=== PATIENT | female | born 1975 | race Caucasian/White ===

== ENCOUNTER 2024-09-30 12:33 | Emergency (ER) | payer OTHER, SELFPAY ==
[2024-09-30 12:46] VITALS: BP 163/86
[2024-09-30 13:20] LABS: % Basophils 0.6 % (0-2); % Eosinophils 1.1 % (0-6); % Immature Granulocytes 0.4 % (0-0.5); % Lymphocytes 11.8 % (20.5-51.1); % Monocytes 11.8 % (1.7-9.3); % Neutrophils 74.3 % (42.2-75.2); Absolute Eosinophils 0.1 10^3/uL (0-0.7); Absolute Lymphocytes 0.9 10^3/uL (1.2-3.4); Absolute Monocytes 0.9 10^3/uL (0.1-0.6); Absolute Neutrophils 5.4 10^3/uL (1.4-6.5); Hematocrit 41.8 % (37.0-47.0); Hemoglobin 13.7 g/dL (12.0-16.0); Mean Corp Hgb Conc. 32.8 g/dL (33.0-37.0); Mean Corpuscular Hgb 25.3 pg (27.0-31.0); Mean Corpuscular Volume 77.1 fL (81.0-99.0); Mean Platelet Volume 9.5 fL (7.4-10.4); Nucleated Red Blood Cells % 0 %; Platelet Count 261 10^3/uL (130-400); Red Blood Cell Count 5.42 10^6/uL (4.20-5.40); Red Cell Dist. Width 14.7 % (11.5-14.5); White Blood Cell Count 7.2 10^3/uL (4.8-10.8)
[2024-09-30 13:30] LABS: Lactic Acid 1.3 mmol/L (0.7-2.0)
[2024-09-30 13:32] LABS: ALT (SGPT) 17 U/L (0-35); AST (SGOT) 25 U/L (14-36); Albumin 4.3 g/dl (3.5-5.0); Alkaline Phosphatase 89 U/L (38-126); Blood Urea Nitrogen 10 mg/dl (7-17); Carbon Dioxide 24 mmol/L (22-30); Chloride 100 mmol/L (98-107); Glucose 84 mg/dl (70-99); Potassium 4.3 mmol/L (3.5-5.1); Sodium 135 mmol/L (135-145); Total Bilirubin 0.6 mg/dl (0.2-1.3); Total Protein 7.2 g/dl (6.3-8.2); eGFR > 60.00
--- NOTE | 2024-09-30 14:21 | ED.GENMED ---
History of Present Illness
General
Chief Complaint: Breathing Problem
Source: patient
Exam Limitations: none
Time Seen by Provider: 09/30/24 13:55
History of Present Illness
History of Present Illness:
See MDM
Past History
Past History
ED Past Medical History: Asthma and HTN
ED Past Surgical History: Gynecological
Social History
Tobacco: Former smoker
Drug: None
Personal:
Living: with family
Family History
Family History: Negative Early CAD
Phy Exam
Physical Exam
Physical Exam:
See MDM
Scores
Heart Failure Risk
Heart Failure Risk Score: Not Applicable
Course
Orders/Labs/Results
Orders:
Orders
09/30/24 12:34
EKG [Electrocardiogram (*1)] Urgent
Reason for Study: Shortness of Breath
EKG- Treatment ONCE
09/30/24 12:49
Chest [CR Chest - 2 Views ] Urgent
Comment:
Reason For Exam: SOB
09/30/24 12:58
Complete Blood Count/With Diff Urgent
Comprehensive Metabolic Panel Urgent
Lactic Acid Urgent
Influenza A+B Rapid Molecular Urgent
FANG Source: Nasal Swab
Specimen Description:
09/30/24 14:20
Dexamethasone Pf [Decadron] 10 mg PO NOW STA
Ipratropium/Albuterol Sulfate [Duoneb] 3 ml INH R NOW STA
Lorazepam [Ativan] 1 mg PO NOW STA
09/30/24 14:21
Acetaminophen [Tylenol] 1,000 mg PO NOW STA
Abnormal Lab Results
09/30/24
12:58
RBC 5.42 H 10^6/uL
(4.20-5.40)
MCV 77.1 L fL
(81.0-99.0)
MCH 25.3 L pg
(27.0-31.0)
MCHC 32.8 L g/dL
(33.0-37.0)
RDW 14.7 H %
(11.5-14.5)
Absolute Lymphs (auto) 0.9 L 10^3/uL
(1.2-3.4)
Absolute Monos (auto) 0.9 H 10^3/uL
(0.1-0.6)
Lymphocytes % 11.8 L %
(20.5-51.1)
Monocytes % 11.8 H %
(1.7-9.3)
09/30/24 12:58
09/30/24 12:58
Vital Signs
Initial and Last Documented VS:
Initial Vital Signs
Temp Pulse Resp BP Pulse Ox
101.8 F H 83 18 163/86 100
09/30/24 12:46 09/30/24 12:46 09/30/24 12:46 09/30/24 12:46 09/30/24 12:46
Last Documented Vital Signs
Temp Pulse Resp BP Pulse Ox
101.8 F H 93 18 163/86 97
09/30/24 12:46 09/30/24 14:10 09/30/24 12:46 09/30/24 12:46 09/30/24 14:10
MDM/Problems Addressed
Differential Diagnosis Includes:
HPI and MDM Narrative:
49-year-old female presenting for shortness of breath and cough. Her was recently diagnosed with influenza. Patient states her symptoms started 2 days ago. Blood work and flu test done prior to my evaluation and patient found to be flu
positive. We discussed risk versus benefit of Tamiflu and she declined Tamiflu. She appears to be out of the Tamiflu window regardless. She does have significant wheezing. Will give DuoNeb and start steroids. Patient complains of anxiety. Will
give short course of Ativan
Physical exam
General: Well appearing and non-toxic
HEENT: protecting airway
Neck: appears supple
CV: No evidence of cyanosis
Resp: No accessory muscle use. Expiratory wheezing throughout
Abd: Non-distended
Extremities: No deformities
Neuro: alert
Psych: Mildly anxious
Skin: Intact
Problems Addressed including Acute and Chronic Conditions affecting care:
1. Influenza
Acuity: acute
Prognosis: stable
Details: Patient out of the Tamiflu window
2. Asthma exacerbation
Acuity: acute
Prognosis: stable
Details: Will start steroids and a DuoNeb
3. Anxiety
Acuity: acute
Prognosis: stable
Details: Will place on short course of Ativan
Updates
Reevaluation after steroids, DuoNeb and Ativan, patient states she is feeling much better. Chest x-ray without evidence of pneumonia. She feels comfortable going home
Differential Diagnosis (but not limited to): Pneumonia, influenza, COVID, bronchitis
Testing considered: Troponin but screening EKG nonischemic
Drug therapy (if applicable): OTC meds, please see d/c instruction regarding Rx drugs
Amount and/or Complexity of Data Reviewed
Clinical info obtained from: Patient
External data reviewed: N/A
Labs I independently reviewed (but not limited to): Electrolytes within normal limits
Radiology: X-ray independently reviewed: Chest x-ray clear
Pulse Ox: not hypoxic
EKG independently reviewed: N/A
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
Critical Care: N/A
Risk of Complication:
Social Determinants of health: Good social support
Discussed with other providers: N/A
Escalation of Care includes Admit/Obs: After being observed in the Emergency Department, pt stable for discharge.
Occasional wrong word or 'sound a like' substitutions may have occurred due to the inherent limitations of voice recognition software. Read the chart carefully and recognize, using context, where substitutions have occurred.
*Critical Care Note
Total Time (30-74mins, 75-104mins- exclusive of procedures): Not Applicable
ED Attending Note
-
Portions of this chart may have been created with voice recognition software.� Occasional wrong word or��sound alike� substitutions may have occurred due to the inherent limitations of voice recognition software.
Discharge Plan
Departure
Patient Disposition: Home (Routine Discharge)
Date of Disposition: 09/30/24
Time of Disposition: 16:33
Patient with high blood pressure during this ER visit?: Yes
Discharge Problem:
Influenza A, Asthma exacerbation
Instructions: Asthma in adults, Flu in adults - ED discharge instructions
Prescriptions:
New
prednisone 20 mg tablet
40 mg PO DAILY Qty: 10 0RF
lorazepam [Ativan] 0.5 mg tablet
0.5 mg PO BID PRN (Reason: anxiety) Qty: 10 0RF
No Action
citalopram 10 MG tablet
20 mg PO DAILY
atenolol 25 MG tablet
25 mg PO BID
hydrochlorothiazide 25 MG tablet
25 mg PO DAILY
lurasidone [Latuda] 20 MG tablet
20 mg PO HS
Referrals:
Eileen Gamboa PA-C [Family Provider] -
Activity Restrictions/Additional Instructions:
Please return for any worsening symptoms.
You may return at any time if you have further concerns.
Please follow up with your doctor at the first available appointment, preferably this week.
Thank you for choosing [facility].
Interventions
Interventions:
*Risk Screen - Suicide Last Done: 09/30/24 12:46
*General Assessment Last Done: 09/30/24 12:46
*Neglect/Abuse Screening Last Done: 09/30/24 12:46
ED- Fall Risk Assessment Last Done: 09/30/24 14:10
*ED COVID-19 Vaccine History Last Done: 09/30/24 14:10
ED- Cardiac Assessment Last Done: 09/30/24 14:10
ED- Pulmonary Assessment Last Done: 09/30/24 14:10
Discharge Date and Time
Print Language: [place] CITIZ[place]
[2024-09-30] MEDS: DECADRON 10 MG PO (14:34)
[2024-09-30] MEDS: TYLENOL 1000 MG PO (14:34)
[2024-09-30] MEDS: DUONEB 3 ML INH (14:34)
[2024-09-30] MEDS: ATIVAN 1 MG PO (14:35)
== END 2024-09-30 17:19 | disposition home or self-care (01) ==
LOC: EMR 12:33
PROVIDERS: Emergency Medicine; EMERGENCY PHYSICIAN Student in an Organized Health Care Education/Training Program; FAMILY PHYSICIAN Physician Assistant Medical
DX: J10.1 Influenza due to other identified influenza virus with other respiratory manifestations (principal); J45.901 Unspecified asthma with (acute) exacerbation; I10 Essential (primary) hypertension; Z87.891 Personal history of nicotine dependence
CPT/HCPCS: 99283; 94640; 71046; 80053; 83605; 85025; 87502; 93005

== ENCOUNTER → 2024-12-27 15:17 | Outpatient (REF) | payer OTHER, SELFPAY | LOC: HWRAD 15:17 | PROVIDERS: ATTENDING PHYSICIAN Physician Assistant Medical | DX: M25.561 Pain in right knee (principal) | CPT/HCPCS: 73564 ==